=== PATIENT | female | born 1985 | race Caucasian/White ===

== ENCOUNTER 2018-06-06 19:45 | Emergency (ER) | payer OTHER ==
--- NOTE | 2018-06-06 20:39 | EDPHY ---
H & P Stated Complaint: CHEST PRESSURE, HEART RACING X 2 DAYS - Personal History LMP (Females 10-55): Over 28 Days Ago Current Tetanus Diphtheria and Acellular Pertussis (TDAP): Yes - Medical/Surgical History Hx Asthma: No Hx Chronic Respiratory Disease: No Hx Diabetes: No Hx Cardiac Disease: No Hx Renal Disease: No Hx Cirrhosis: No Hx Alcoholism: No Hx HIV/AIDS: No Hx Splenectomy or Spleen Trauma: No Other PMH: DENIES - Social History Smoking Status: Never smoked Time Seen by Provider: 06/06/18 20:28 HPI/ROS: CHIEF COMPLAINT: Intermittent Chest pain x3 days HISTORY OF PRESENT ILLNESS: 32-year-old female, generally healthy, active runner, arrives via private vehicle complaining of 3 days of intermittent chest pain. She is not identify definitive pattern but does note that in the past 3 days it appears to occur with exertional activities. This evening for example she was walking up to 3rd story of her apartment, developed chest pain described as somebody "sitting on my chest", palpitations, near-syncope. The symptoms continue for several minutes. She notes similar episodes for the past 3 days. She wears a wrist heart rate monitor and has noted that sometimes her heart rate will go into the 220 range with accompanying chest pain and near syncopal sensation. PRIMARY CARE PROVIDER: Jona REVIEW OF SYSTEMS: 10 systems reviewed and negative with the exception of the elements mentioned in the history of present illness PAST MEDICAL & SURGICAL HISTORY: No pertinent medical or surgical history. No history of hyperlipidemia. No VTE history SOCIAL HISTORY:Nonsmoker. No drug use. No cocaine use. FAMILY HISTORY: no family history of premature coronary disease. No family history of VTE. No family history of sudden unexplained PHYSICAL EXAM (Prior to examination, patient consented to physical exam, hands were washed and my usual and customary physical exam procedures followed) 1) GENERAL: Well-developed, well-nourished, alert and oriented. Appears to be in no acute distress. 2) HEAD: Normocephalic, atraumatic 3) HEENT: Pupils equal, round, reactive to light bilaterally. Sclera anicteric. Nasopharynx, oropharynx, clear, no lesions. Moist Mucous membranes. No tonsillar enlargement or exudate. Ears bilaterally with normal tympanic membranes. 4) NECK: Full range of motion, no meningeal signs. No carotid bruit 5) LUNGS: Clear auscultation bilaterally, no wheezes, no rhonchi, no retractions. 6) HEART: Regular rate and rhythm, no murmur, no heave, no gallop. 7) ABDOMEN: No guarding, no rebound, no focal tenderness, negative McBurney's, negative Kennedy's, negative Rovsing's, negative peritoneal sign, 8) MUSCULOSKELETAL: Moving all extremities, no focal areas of tenderness, no obvious trauma. No peripheral edema or discoloration. 9) BACK: No CVA tenderness, no midline vertebral tenderness, no fluctuance, no step-off, no obvious trauma, no visual or palpable abnormality. 10) SKIN: No rash, no petechiae. 11) Psychiatric: Patient is oriented X 3, there is no agitation. DIFFERENTIAL DIAGNOSIS: In no particular order, including but not limited to myocardial ischemia, pulmonary embolus, chest wall pain, pleural inflammation and pulmonary infectious causes. (César Johns) Constitutional: Initial Vital Signs Temperature (C) 36.6 C 06/06/18 19:49 Heart Rate 65 06/06/18 19:49 Respiratory Rate 16 06/06/18 19:49 Blood Pressure 123/74 H 06/06/18 19:49 O2 Sat (%) 98 06/06/18 19:49 O2 Delivery Mode Room Air Allergies/Adverse Reactions: bee venom protein (honey bee) Allergy (Verified 06/06/18 19:48) Home Medications: Medication Instructions Recorded NK [No Known Home Meds] 06/06/18 Medical Decision Making - Diagnostics Imaging Results: Images reviewed myself (César Johns) ED Course/Re-evaluation: 9:11 p.m.: Moderate pretest suspicion for pulmonary embolus with non negative D -dimer. I subsequently recommended CT angiography of the chest. Indications risks benefits discussed with patient and she consents. 10:00 p.m.: Re-evaluation. Patient remains asymptomatic in the ER. Discussed the case with secondary supervising physician Dr. Vidya Conner in the ER. Of particular concerned this patient is her self-reported exertional chest pain described as a crushing chest pain with associated near-syncope and dyspnea as well as intermittent episodes of heart rate 200-120 beats per minute on her wrist monitor. Have recommended hospitalization for further evaluation. Patient is agreeable with this. 10:14 p.m.: Consultation with [facility] who will look for placement call me back 10:30 p.m.: Consultation with [facility], patient has been accepted for by Dr.Susan Lund at [facility].EMTALA paperwork completed ( César Johns) Other Provider: The patient was evaluated and managed by the Physician Criminal Justice Social Worker. I discussed the patient's presentation and course with the physician warehouse assistant and agree with the evaluation. My co-signature indicates that I have reviewed this chart and I agree with the findings and plan of care as documented. I am the secondary supervising physician. (Vidya Conner) - Data Points Laboratory Results: Laboratory Results 06/06/18 20:08 06/06/18 20:08 Point of Care Test Results: Chemistry 06/06/18 20:44 POC Troponin I 0.01 ng/mL ng/mL (0.00-0.08) Departure - Departure Disposition: Acute Care Hospital [facility] Clinical Impression: Chest pain Qualifiers: Chest pain type: other chest pain Qualified Code(s): R07.89 - Other chest pain Condition: Fair Referrals: NONE *PRIMARY CARE P,. [Primary Care Provider] - As per Instructions
[2018-06-06 20:43] LABS: PLATELET COUNT 229 10^3/uL (150-400)
--- NOTE | 2018-06-06 20:58 | CPEKG ---
Test Reason : OPEN Blood Pressure : / mmHG Vent. Rate : 052 BPM Atrial Rate : 052 BPM P-R Int : 115 ms QRS Dur : 082 ms QT Int : 419 ms P-R-T Axes : 063 073 053 degrees QTc Int : 390 ms Sinus rhythm Confirmed by Zora Resendez ([id number]) on 06/06/2018 8:58:17 PM Referred By: PHYSICIAN ED Confirmed By:Zora Resendez
[2018-06-06] MEDS ORDERED: IOPAMIDOL (ISOVUE 370) 100 ML BTL IV ONE (21:13)
[2018-06-06 23:10] VITALS: BP 106/64
== END 2018-06-06 23:11 | disposition short-term general hospital (02) ==
DX: R07.89 Other chest pain (principal); R00.2 Palpitations; R55 Syncope and collapse
CPT/HCPCS: 84484-ER; Q9967